=== PATIENT | male | born 2000 | race African-American/Black ===

== ENCOUNTER 2022-07-03 16:49 | Emergency (ER) | payer BC, SELFPAY ==
[2022-07-03 16:59] VITALS: BP 133/75; PULSE 72; RESP 16; TEMP 36.4; O2SAT 99; BMI 31.7
--- NOTE | 2022-07-03 17:26 | CRLHL7_ITS ---
For Patients: As a result of the Cures Act, medical imaging exams and procedure reports are released immediately into your electronic medical record. You may view this report before your referring provider. If you have questions, please contact your health care provider. INDICATION: INJURY TECHNIQUE: Left knee 3 views. COMPARISON: None. FINDINGS: Bones: Alignment is normal. No fractures or bone lesions. Joint spaces: Unremarkable. Soft tissues: Unremarkable. IMPRESSION: Unremarkable left knee. Dictated by: Dami Peralta MD @ 07/03/2022 17:48:48 (Electronically Signed)
--- NOTE | 2022-07-03 17:27 | ED_ITS ---
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 A runner came toward him as he was catching a ball and dove at the base. The patient was hit on the lateral and anterior aspect of his left knee. His leg did release from the base and he fell to the ground. He he was able to get up and ambulate but reports some instability of his leg when doing so. He does not report any other injury. Related Data Home Medications Medication Instructions Recorded Confirmed albuterol sulfate .ROUTE 07/03/22 fluticasone propionate inhalation 07/03/22 montelukast .ROUTE 07/03/22 Allergies Allergy/AdvReac Type Severity Reaction Status Date / Time No Known Drug Allergies Allergy Verified 07/03/22 17:01 Review of Systems Status of ROS: Reports: 10 or more systems reviewed and unremarkable except as noted in History and below Narrative: Constitutional: No fevers, no weight gain or loss. Eyes: No discharge. No vision changes. HENT: No congestion, no sore throat, no ear pain. Cardiovascular: No chest pain, no palpitations. Respiratory: No shortness of breath, no wheezes, no cough. Gastrointestinal: No abdominal pain, no vomiting, no diarrhea. Genitourinary: No dysuria, no hematuria. Musculoskeletal: Normal range of motion. Mild pain now in the medial aspect of his left knee. Skin: No rashes, no pruritis. Neurological: No dizziness, weakness, sensory change, speech change. Endo/Heme/Allergies: No bruising or bleeding. No polydipsia. Pysch: no suicidality, no anxiety, no insomnia. All other systems reviewed and are negative. PFSH PFSH Social History Smoking Status: Never smoker How often do you have a drink containing alcohol: never How often do you have six or more drinks on one occasion: Never AUDIT-C Alcohol total score: 0 Non-prescribed substance use: denies use Exam Narrative: Exam Narrative: Constitutional: Well-developed, well-nourished, no acute distress. HEENT: Normocephalic, atraumatic. Neck: Normal range of motion. Nontender. Supple. Heart: Intact distal pulses. Lungs: No chest discomfort. No wheezes, rhonchi, or rales. Abdomen: Nontender. Back: Normal range of motion. Extremities: Left knee appears normal without any sign of deformity or effusion. Suha's test is negative. Luis's test is also negative. The patient does have with laxity of the MCL ligament under valgus stress. Skin: Intact. No rash. Warm. No erythema or pallor. Neurologic: No altered sensation. No weakness. Alert and oriented. Psychiatric: No suicidality. No anxiety or depression. No insomnia. Nursing notes and vitals signs are reviewed. Const: Vital Signs, click to edit/add: Vital Signs - 24 hr 07/03/22 16:59 07/03/22 17:56 Temperature 97.5 F L Pulse Rate [Pulse Oximeter] 72 74 Respiratory Rate 16 Blood Pressure [Ri ght Upper Arm] 133/75 136/82 Pulse Oximetry 99 99 Oxygen Delivery Me thod Room Air Room Air Course Vital Signs Vital signs: Initial Vital Signs Temperature 97.5 F L 07/03/22 16:59 Temperature Source Temporal Artery Scan 07/03/22 16:59 Pulse Rate 72 07/03/22 16:59 Respiratory Rate 16 07/03/22 16:59 Blood Pressure 133/75 07/03/22 16:59 Blood Pressure Mean 94 07/03/22 16:59 Blood Pressure Position Sitting 07/03/22 16:59 Pulse Oximetry 99 07/03/22 16:59 Oxygen Delivery Method Room Air 07/03/22 16:59 Vital Signs Temperature 97.5 F L 07/03/22 16:59 Pulse Rate 72 07/03/22 16:59 Respiratory Rate 16 07/03/22 16:59 Blood Pressure 133/75 07/03/22 16:59 Pulse Oximetry 99 07/03/22 16:59 Oxygen Delivery Method Room Air 07/03/22 16:59 Temperature 97.5 F L 07/03/22 16:59 Pulse Rate 74 07/03/22 17:56 Respiratory Rate 16 07/03/22 16:59 Blood Pressure 136/82 07/03/22 17:56 Pulse Oximetry 99 07/03/22 17:56 Oxygen Delivery Method Room Air 07/03/22 17:56 MDM - Extremity Injury (Lower) MDM Narrative Medical decision making narrative: This patient comes in with an injury to his left knee that it appears to be a strain of the the left MCL ligament. There is no other evidence of ligament injury or meniscus injury. An x-ray of the left knee is acquired which returns with normal findings. The patient was placed in a knee immobilizer. He is okay to ambulate with this in place as tolerated. A follow-up appointment with orthopedic clinic here is recommended. The patient has information how to arrange that appointment. Imaging Data XR L Knee: Radiologist's impression: Unremarkable left knee. Discharge Plan Discharge Clinical Impression: Grade 2 sprain of medial collateral ligament of left knee Patient Disposition: Home, Self-Care Condition: Unchanged Additional Instructions: Wear knee immobilizer. Activity as tolerated. Use [id number] medicines as needed and directed. Follow up with orthopedic appointment for further evaluation and treatment. Prescriptions: No Action albuterol sulfate .ROUTE fluticasone propionate [Flovent Diskus] inhalation montelukast .ROUTE Stand Alone Forms: [employer] Info Instructions
--- NOTE | 2022-07-03 17:52 | ED.NURSE ---
26 Knee Immobilizer applied to pt L leg.
[2022-07-03 17:56] VITALS: BP 136/82; PULSE 74; O2SAT 99
== END 2022-07-03 18:24 | disposition home or self-care (01) ==
LOC: ED 17:32
PROVIDERS: Emergency Provider Emergency Medicine Emergency Medical Services
DX: S83.412A Sprain of medial collateral ligament of left knee, initial encounter (principal); W50.0XXA Accidental hit or strike by another person, initial encounter; Y93.64 Activity, baseball
CPT/HCPCS: 29505; 73562; 99284

== ENCOUNTER 2022-07-06 07:45 | Outpatient (CLI) | payer BC, SELFPAY ==
--- NOTE | 2022-07-06 08:15 | MR_ITS ---
[facility] [address] [facility] [address] Phone:?[phone] Fax:?[phone] Referring Physician Information: Seferino Conrad M.D. [address] [facility] [address] Phone:?[phone] Fax:?[phone] Patient:Kimmie Whitaker D.O.B:?2000 Sex:?Male Phone:? [facility] MRN:?[id number] Exam Date:?07/06/2022 ? EXAM: MRI of the LEFT KNEE, without contrast CLINICAL INFORMATION: Male, 21 years old, with acute left knee pain. INDICATION: Evaluate knee pain. PRIOR SURGERY: None reported. PLAIN FILMS: Knee radiographs dated 07/03/2022. COMPARISONS: No prior MRIs available. TECHNICAL INFORMATION: Using a 1.5T MR scanner and a localizing surface coil: sagittals: PD, PDFS coronals: PD, STIR axials: PD, T2FS SEDATION: None CONTRAST: None FINDINGS: Knee joint: Effusion: Marked left knee effusion. Popliteal cyst: None. Loose bodies: None. Subcutaneous and extra-articular soft tissues: Moderate circumferential subcutaneous soft tissue edema is present at the level of the joint (axial T2FS series 4 image 21). Ligaments: ACL: Intact ACL anteromedial and posterolateral bundles, without sprain or tear. PCL: Intact PCL, without acute or chronic injury. MCL: Intermediate-high disruption of the mid-distal superficial MCL, resulting in a wavy/redundant appearance of the ligament (coronal STIR series 8 image 19 and axial T2FS series 4 images 31-23). This is associated with moderate periligamentous edema. There is also marked sprain and high-grade tearing of the meniscofemoral component of the deep MCL. LCL: Intact LCL, without injury. Posterolateral corner: No posterolateral corner soft tissue injury. Popliteus, biceps femoris, iliotibial band, popliteofibular ligament and lateral gastrocnemius are intact. Posteromedial corner: No posteromedial corner soft tissue injury. Semimembranosus, pes anserine tendons and posterior oblique ligament are without injury, tendinopathy or bursitis. Extensor mechanism: Patellar tendon: Intact, without tendinopathy. Quadriceps tendon: Intact, without tendinopathy. Retinacula: Medial and lateral retinacula are intact. Fat pads: Unremarkable infrapatellar Hoffa's, quadriceps and prefemoral fat pads. Medial compartment: Medial meniscus: No articular surface, meniscosynovial junction or root tear. No displacement, extrusion or parameniscal cyst. Medial femoral condyle: No chondromalacia or osteochondral abnormality. Medial tibial plateau: No chondromalacia or osteochondral abnormality. Lateral compartment: Lateral meniscus: No articular surface, meniscosynovial junction or root tear. No displacement, extrusion or parameniscal cyst. Lateral femoral condyle: No chondromalacia or osteochondral abnormality. Lateral tibial plateau: No chondromalacia or osteochondral abnormality. Patellofemoral joint: Patella: No chondromalacia or osteochondral abnormality. Trochlea: No chondromalacia or osteochondral abnormality. Proximal tibiofibular joint: Unremarkable, without evidence of ligament sprain injury, joint effusion or adjacent marrow edema. Bones: Poorly defined subchondral fracture involving the anterolateral margin of the lateral tibial plateau measuring 7 x 13 mm, with significant surrounding bone marrow edema (coronal STIR series 8 image 18 and sagittal PDFS series 6 image 26). IMPRESSION: 1. Marked grade 2 sprain of the MCL, comprised of: -[id number] tearing of the mid-distal aspect of the superficial MCL. -Poorly defined high-grade tearing of the meniscofemoral component of the deep MCL. 2. Approximately 7 x 13 mm nondisplaced subchondral fracture involving the anterolateral aspect of the lateral tibial plateau, with significant surrounding bone marrow edema. 3. Marked knee joint effusion with moderate surrounding soft tissue edema. No popliteal (Campuzano's) cyst. 4. No ACL, PCL, or LCL sprain/tear. 5. No medial or lateral meniscal tear. 6. No chondromalacia or osteochondral lesion/defect. 7. No myotendinous abnormality. BC Electronically signed on 07/06/2022 11:18:00 AM by Glen Reardon M.D.
== END 2022-07-06 07:46 | disposition home or self-care (01) ==
LOC: MRI 07:46
PROVIDERS: Visit Provider Family Medicine
DX: M25.562 Pain in left knee (principal); S83.412A Sprain of medial collateral ligament of left knee, initial encounter; M25.462 Effusion, left knee; S89.90XA Unspecified injury of unspecified lower leg, initial encounter
CPT/HCPCS: 73721